=== PATIENT | female | born 1980 | race Two or more races ===

== ENCOUNTER 2023-12-15 22:43 | Emergency (ER) | payer OTHER ==
[~2023-12-15] VITALS: Ht 162.6 cm; Wt 57.2 kg
[2023-12-15] MEDS ORDERED: IPRATROPIUM/ALBUTEROL SULFATE 3 ML AMPUL.NEB IH SCH (23:45)
[2023-12-15] MEDS ORDERED: METHYLPREDNISOLONE SOD SUCC 125 MG VIAL IV ONE (23:45)
[2023-12-16 00:04] LABS: HEMATOCRIT 35.4 % (36.0-45.00); HEMOGLOBIN 12.4 g/dL (12.0-15.00); MEAN CELL VOLUME 94.9 fL (80.00-100.00); MEAN CORPUSCULAR HEMOGLOBIN 33.2 pg (27.00-32.0); PLATELET COUNT 262 K/uL (150-450); RED BLOOD COUNT 3.74 M/uL (4.00-6.00); RED CELL DISTRIBUTION WIDTH 13.9 % (11.5-14.5)
== END 2023-12-16 02:06 | disposition home or self-care (01) ==
LOC: ER 22:43
PROVIDERS: General Practice
DX: J45.901 Unspecified asthma with (acute) exacerbation (principal); Z20.822 Contact with and (suspected) exposure to COVID-19; Z91.013 Allergy to seafood

== ENCOUNTER 2024-06-03 14:39 | Emergency (ER) | payer OTHER ==
[~2024-06-03] VITALS: Ht 160 cm; Wt 58.5 kg
[2024-06-03] MEDS ORDERED: IPRATROPIU0.2 MG/1 M IH (16:45)
[2024-06-03] MEDS ORDERED: ALBUTEROL1.25 MG/3 IH (16:45)
[2024-06-03] MEDS ORDERED: VENTOLIN HFA18 GM IH (16:45)
== END 2024-06-03 16:54 | disposition home or self-care (01) ==
LOC: ER 14:39
DX: J45.901 Unspecified asthma with (acute) exacerbation (principal); J98.8 Other specified respiratory disorders; R06.02 Shortness of breath; Z91.013 Allergy to seafood